=== PATIENT | female | born 2005 | race African-American/Black ===

== ENCOUNTER 2025-08-23 12:19 | Observation (INO) ==
[2025-08-23 12:55] LABS: Hematocrit (blood only) 40.9 % (37.0-47.0); Hemoglobin 13.6 g/dL (12.0-16.0); Immature Granulocytes # (auto) 0.08 K/uL (0.01-0.20); Immature Granulocytes % (auto) 0.4 %; Mean Corpuscular Hemoglobin 28.4 pg (25.0-34.0); Mean Corpuscular Volume 85.4 fL (80.0-100.0); Platelet Count 256 K/uL (130-400); RDW Standard Deviation 45.1 fL (36.4-46.3); Red Blood Count 4.79 M/uL (4.20-5.40); White Blood Count 18.16 K/ul (4.8-10.8)
--- NOTE | 2025-08-23 13:00 | Emergency Department Note ---
History of Present Illness General Chief complaint: Flu Like Symptoms Stated complaint: CAN'T BREATHE SORE THROAT Time Seen by Provider: 08/23/25 12:47 History of Present Illness Maximum Pain Intensity: 6 This is an otherwise healthy 20-year-old female who presents to the emergency department via private vehicle with complaints of "sore throat, cannot swallow". The patient notes that for the past several days now she has had a sore throat. She notes trouble swallowing. She states that she is drooling. She notes allergies to penicillins. No pertinent past medical history, surgeries or other allergies. Home Medications Medication Instructions Recorded Confirmed Type Control Pill 1 tab PO DIRECTED 08/23/25 08/23/25 History Allergies Allergy/AdvReac Type Severity Reaction Status Date / Time amoxicillin Allergy Intermediate Hives Verified 08/23/25 16:09 ALL "CILLINS" Allergy Intermediate Hives Uncoded 08/23/25 16:09 Past Med/Surg History Problem List (Updated 08/23/25 @ 17:39 by Ravi Wells PA-C) Dysphagia (Acute) Abnormal computed tomography of soft tissue of neck (Acute) Tonsillitis (Acute) Social History Smoking Status: Never smoker Preferred Language: Omani Feels Safe at Home: Yes Review of Systems A total of 10 systems reviewed and were otherwise negative Physical Exam Vital Signs Vital Signs - 24 hr 08/23/25 12:27 08/23/25 13:26 08/23/25 13:30 Temperature 37.7 C H Temperature Source Oral Pulse Rate 103 H 98 H Pulse Rate from SpO2 Sensor Respiratory Rate 18 Respiratory Effort / Characteristics Non-Labored Spontaneous Respiratory Depth Normal Blood Pressure 135/88 128/73 Blood Pressure Mean 103 88 Pulse Oximetry 95 Oxygen Delivery Method Room Air Sepsis Recent Fever Within 48 Hours No Sepsis New/Unexplained Change in Mental Status No Sepsis Action Taken by Nursing No Action Required 08/23/25 13:30 08/23/25 15:00 08/23/25 15:25 Temperature Temperature Source Pulse Rate 100 H 87 Pulse Rate from SpO2 Sensor 99 H 87 Respiratory Rate 19 19 Respiratory Effort / Characteristics Respiratory Depth Blood Pressure 119/64 Blood Pressure Mean 83 Pulse Oximetry 97 96 Oxygen Delivery Method Sepsis Recent Fever Within 48 Hours Sepsis New/Unexplained Change in Mental Status Sepsis Action Taken by Nursing 08/23/25 15:27 08/23/25 15:30 08/23/25 15:30 Temperature Temperature Source Pulse Rate 81 82 Pulse Rate from SpO2 Sensor 81 81 Respiratory Rate 18 16 Respiratory Effort / Characteristics Respiratory Depth Blood Pressure 125/68 Blood Pressure Mean 84 Pulse Oximetry 95 96 Oxygen Delivery Method Sepsis Recent Fever Within 48 Hours Sepsis New/Unexplained Change in Mental Status Sepsis Action Taken by Nursing 08/23/25 15:42 08/23/25 15:51 08/23/25 16:00 Temperature Temperature Source Pulse Rate 77 Pulse Rate from SpO2 Sensor 78 Respiratory Rate 17 Respiratory Effort / Characteristics Respiratory Depth Blood Pressure Blood Pressure Mean Pulse Oximetry 97 93 97 Oxygen Delivery Method Sepsis Recent Fever Within 48 Hours Sepsis New/Unexplained Change in Mental Status Sepsis Action Taken by Nursing 08/23/25 16:00 08/23/25 16:30 08/23/25 16:30 Temperature Temperature Source Pulse Rate 78 Pulse Rate from SpO2 Sensor 79 Respiratory Rate 20 Respiratory Effort / Characteristics Respiratory Depth Blood Pressure 120/68 144/66 H Blood Pressure Mean 80 80 Pulse Oximetry 97 Oxygen Delivery Method Sepsis Recent Fever Within 48 Hours Sepsis New/Unexplained Change in Mental Status Sepsis Action Taken by Nursing 08/23/25 17:00 08/23/25 17:00 Temperature Temperature Source Pulse Rate 71 Pulse Rate from SpO2 Sensor 71 Respiratory Rate 16 Respiratory Effort / Characteristics Respiratory Depth Blood Pressure 122/66 Blood Pressure Mean 76 Pulse Oximetry 97 Oxygen Delivery Method Sepsis Recent Fever Within 48 Hours Sepsis New/Unexplained Change in Mental Status Sepsis Action Taken by Nursing VITAL SIGNS - Vital signs and nursing notes were reviewed. Stable and borderline febrile. GENERAL -20-year-old female appearing her stated age who is in no acute distress but appears tired, mildly tearful and drooling. Communicates well with provider and answers questions appropriately. SKIN - Without rashes. No meningeal or petechial rash. HEAD - NC/AT. EYES - PERRL with EOMI bilaterally. Sclera anicteric. EARS - No deformities of external structures noted on gross examination bilaterally. External auditory canals without discharge or otorrhea. Tympanic membranes pearly [place] without retraction or bulging. No fluid or purulent material visualized behind the TM. Handle of malleus, umbo, cone of light, pars tensa/flaccid all easily visualized. NOSE - Midline and without cyanosis. No epistaxis or purulent drainage noted. Septum midline without deviation or septal hematoma noted. MOUTH/OROPHARYNX - Without perioral cyanosis. Buccal mucosa pink and moist and without leukoplakia. 2+ bilateral tonsil hypertrophy. There is soft palate fullness on the right greater than left. There is drooling. There is trismus. No stridor. There is a muffled voice. Good dentition noted. NECK - Bilateral anterior cervical lymphadenopathy noted. No nuchal rigidity. LUNGS -clear to auscultation CARDIAC - RRR NEUROLOGIC - Cranial nerves II through XII grossly intact. PSYCH -alert, oriented and pleasant on exam Course Administered Medications Discontinued Medications Dexamethasone Sodium Phosphate (DexamethasonePf 10 Mg/Ml Vial) 10 mg IV NOW ONE Stop: 08/23/25 13:43 Last Admin: 08/23/25 14:01 Dose: 10 mg Documented By: abdiaziz Clindamycin Phosphate (Cleocin/D5w) 600 mg in 50 mls @ 100 mls/hr IV NOW ONE Stop: 08/23/25 13:27 Last Admin: 08/23/25 14:08 Dose: Not Given Documented By: abdiaziz Sodium Chloride (Nss) 1,000 mls @ 999 mls/hr IV .Q1H1M ONE Stop: 08/23/25 13:58 Last Infusion: 08/23/25 15:10 Dose: Infused Documented By: abdiaziz Admin: 08/23/25 13:57 Dose: 999 mls/hr Documented By: abdiaziz Ceftriaxone Sodium (Rocephin) 2,000 mg in 50 mls @ 100 mls/hr IV NOW STA Stop: 08/23/25 14:11 Last Infusion: 08/23/25 15:10 Dose: Infused Documented By: abdiaziz Admin: 08/23/25 14:26 Dose: 100 mls/hr Documented By: abdiaziz Acetaminophen (Ofirmev) 1,000 mg in 100 mls @ 400 mls/hr IV NOW STA Stop: 08/23/25 13:56 Last Infusion: 08/23/25 14:27 Dose: Infused Documented By: abdiaziz Admin: 08/23/25 13:57 Dose: 400 mls/hr Documented By: abdiaziz Metronidazole (Flagyl) 500 mg in 100 mls @ 100 mls/hr IV NOW STA; Protocol Stop: 08/23/25 15:58 Last Infusion: 08/23/25 16:38 Dose: Infused Documented By: abdiaziz Admin: 08/23/25 15:37 Dose: 100 mls/hr Documented By: abdiaziz Ioversol (Optiray 320 100ml) 94 ml IV ONCE ONE Stop: 08/23/25 13:38 Last Admin: 08/23/25 13:37 Dose: 94 ml Documented By: LE Ketorolac Tromethamine (Ketorolac Tromethamine 15 Mg/Ml Vial) 10 mg IV NOW ONE Stop: 08/23/25 13:43 Last Admin: 08/23/25 14:01 Dose: 10 mg Documented By: abdiaziz Medical Decision Making Laboratory Data 08/23/25 12:40 08/23/25 12:40 Lab Results 08/23/25 08/23/25 08/23/25 Range/Units 12:40 12:40 15:25 WBC 18.16 H (4.8-10.8) K/ul RBC 4.79 (4.20-5.40) M/uL Hgb 13.6 (12.0-16.0) g/dL Hct 40.9 (37.0-47.0) % MCV 85.4 (80.0-100.0) fL MCH 28.4 (25.0-34.0) pg MCHC 33.3 (32.0-36.0) g/dL RDW Std Deviation 45.1 (36.4-46.3) fL RDW Coeff of Damián 14.6 H (11.5-14.5) % Plt Count 256 (130-400) K/uL MPV 10.9 (9.4-12.4) fL Immature Gran % (Auto) 0.4 % Neut % (Auto) 83.4 % Lymph % (Auto) 9.0 % Travis % (Auto) 5.5 % Eos % (Auto) 1.3 % Baso % (Auto) 0.4 % Neut # (Auto) 15.14 H (1.40-6.50) K/uL Lymph # (Auto) 1.64 (1.20-3.40) K/uL Travis # (Auto) 0.99 H (0.11-0.59) K/uL Eos # (Auto) 0.24 (0.00-0.50) K/uL Baso # (Auto) 0.07 (0.00-0.20) K/uL Immature Gran # (Auto) 0.08 (0.01-0.20) K/uL Sodium 135 L (136-145) mmol/L Potassium 3.7 (3.5-5.1) mmol/L Chloride 103 (98-107) mmol/L Carbon Dioxide 25 (21-32) mmol/L Anion Gap 7 (3-11) BUN 10 (6-23) mg/dl Creatinine 0.48 L (0.6-1.2) mg/dl Est Cr Clr Drug Dosing 194.1 ml/min eGFR 138.98 BUN/Creatinine Ratio 20.8 H (10-20) Glucose 102 H (70-99(Fasting)) mg/dl Calcium 9.9 (8.6-10.3) mg/dl Total Bilirubin 0.4 (0.2-1.0) mg/dl AST 27 (13-39) U/L ALT 26 (7-52) U/L Alkaline Phosphatase 93 (34-104) U/L Total Protein 8.5 H (6.0-8.3) gm/dl Albumin 4.5 (3.4-5.0) gm/dl Globulin 4.0 (2.5-4.0) gm/dl Albumin/Globulin Ratio 1.1 (0.9-2) HCG, Qual Negative (Negative) Urine Color Yellow Urine Appearance Clear (Clear) Urine pH 8.0 H (4.5-7.5) Ur Specific [place] > 1.045 H (1.000-1.030) Urine Protein Negative (Negative) Urine Glucose (UA) Negative (Negative) Urine Ketones 1+ H (Negative) Urine Blood Negative (Negative) Urine Nitrite Negative (Negative) Urine Bilirubin Negative (Negative) Urine Urobilinogen Negative (Negative) Ur Leukocyte Esterase Negative (Negative) Urine Comment SARS-CoV-2 (PCR) NEGATIVE (Negative) Monoscreen Negative Cancelled (Negative) Influenza Type A (PCR) Negative (Neg) Influenza Type B (PCR) Negative (Neg) RSV (RT-PCR) Negative (Neg) Group A Strep (PCR) NOT DETECTED (NotDetected) Imaging Data Radiologist's Impression: Soft Tissue Neck CT 08/23/25 12:58 CT soft tissue neck w con HISTORY: 20 years-old Female throat pain, drooling, muffled voice acute cerebral pain with dysphagia COMPARISON: None TECHNIQUE: Multiple axial CT images of the soft tissues of the neck were obtained with IV contrast. A dose lowering technique was used consistent with the principals of KIMBER. FINDINGS: Unremarkable appearance of the imaged vascular structures of the neck. The intracranial structures are within normal limits. Partially imaged overlying a large upper mediastinal lymph nodes. Lung apices are clear. Residual thymic tissue anterior mediastinum. Unremarkable thyroid, parotid and submandibular glands. Pathologically enlarged level 2 cervical chain lymph nodes measure up to 2.7 x 1.8 cm. Normal epiglottis and subglottic airway. Enlargement of the palatine, adenoid and lingual tonsils. The palatine tonsils demonstrate striated heterogeneous enhancement. Ill-defined 1.2 x 1.0 x 1.4 cm collection within the right peritonsillar tissues on image 162 series 3. Moderate edema within the right parapharyngeal tissues. There is moderate oral pharyngeal narrowing. No drainable fluid collection. Mild mucosal thickening of the paranasal sinuses. No acute fracture. IMPRESSION: 1. Acute tonsillitis with right peritonsillar phlegmon/developing abscess measuring 1.5 cm. No drainable fluid collection is present. 2. Moderate edema within the right parapharyngeal tissues. 3. Pathologically enlarged cervical chain lymph nodes likely reactive. Correlate clinically to exclude mononucleosis. ACT 112: Negative or not required by law. The above report was generated using voice recognition software. It may contain grammatical, syntax or spelling errors. Electronically signed by: Jose Manuel Hyde M.D. 08/23/2025 2:07 PM [facility] Narrative Patient was seen and evaluated as above in the A pod Sub wait area then B06. Review was performed of nursing notes and vital signs. After obtaining a thorough history and physical examination the above work up was performed. Patient presents to us today for evaluation of the above symptoms. She does have drooling, trismus, muffled voice. No stridor. No airway compromise clinically. Options of care were discussed with the patient. IV access was established per labs were drawn. There is leukocytosis 18.16. No anemia. Mild hyponatremia 135. No evidence of kidney or liver failure. hCG negative. Urinalysis without sign of infection. The viral quad panel was negative. Monoscreen negative. Group A strep negative. Throat culture pending. CT scan soft tissue neck obtained and as above. No drainable abscess at the present time, or developing abscess/phlegmon noted. There is also moderate edema within the right parapharyngeal tissues. [id number] spoke with Dr. Cuevas, ENT. We discussed the case. We discussed that if there was improvement with the IV hydration, IV antibiotics, IV steroid then we may consider close outpatient follow-up with him tomorrow in the office otherwise we did consider patient management if needed. The patient was medicated here with IV antibiotics. Initially I considered IV clindamycin, however after discussion with ED attending plan was to add IV ceftriaxone. This was complemented with IV Flagyl for additional coverage. She was medicated with IV acetaminophen, IV dexamethasone, IV fluids, IV Toradol. She was reevaluated with some improvement but still with difficulty swallowing. Airway is patent. Case discussed with the hospitalist service. Please refer to further documentation regarding her stay. GCS: 15 In the evaluation and treatment of this patient the following differential diagnoses were entertained: Strep pharyngitis, viral pharyngitis, allergic rhinitis with post nasal drip, airway obstruction, head/neck neoplasias, GERD, peritonisllar abscess, epiglottitis, kqgw-qnzn-bco-mouth disease, herpes simplex, mononucleosis, pneumonia, retropharyngeal abscess, scarlet fever, among others. Impression & Plan Tonsillitis, Abnormal computed tomography of soft tissue of neck, Dysphagia Discharge Plan Visit Data Chief Complaint: Flu Like Symptoms Stated Complaint: CAN'T BREATHE SORE THROAT ED Provider: [facility] ED Midlevel Provider: Ravi Wells Discharge Problem: Tonsillitis, Abnormal computed tomography of soft tissue of neck, Dysphagia Patient Disposition: Admitted As Inpatient Condition: Good Forms Stand Alone Forms: Float: [place] Prescriptions Prescriptions: No Action Control Pill 1 tab PO DIRECTED Rx Instructions: PT STATED "ON CONTROL, NOT RIGHT NOW". Referrals Referrals: [place] [Primary Care Provider] -
[2025-08-23 13:13] LABS: Alanine Aminotransferase 26.0 U/L (7-52); Albumin Globulin Ratio 1.1 (0.9-2); Albumin Level 4.5 gm/dl (3.4-5.0); Alkaline Phosphatase 93.0 U/L (34-104); Anion Gap 7.0 (3-11); Bilirubin,Total 0.4 mg/dl (0.2-1.0); Blood Urea Nitrogen 10.0 mg/dl (6-23); Calcium 9.9 mg/dl (8.6-10.3); Carbon Dioxide 25.0 mmol/L (21-32); Chloride 103.0 mmol/L (98-107); Creatinine Clr Calc Pharmacy 194.1 ml/min; Globulin 4.0 gm/dl (2.5-4.0); Glucose 102.0 mg/dl (70-99(Fasting)); Potassium 3.7 mmol/L (3.5-5.1); Pregnancy Test, Serum Negative (Negative); Sodium 135.0 mmol/L (136-145); Total Protein 8.5 gm/dl (6.0-8.3)
[2025-08-23 13:31] LABS: Influenza A virus by PCR Negative (Neg); Influenza B virus by PCR Negative (Neg); SARS CoV2 RNA(COVID-19) Ceph NEGATIVE (Negative)
[2025-08-23] MEDS: OPTIRAY 320 100ml IV ONE (13:37)
[2025-08-23] MEDS: SODIUM CHLORIDE 0.9% 1,000 ML IV ONE (13:57)
[2025-08-23] MEDS: ACETAMINOPHEN 1,000 MG/100 ML VIAL IV STA (13:57)
[2025-08-23] MEDS: dexAMETHasone**PF** 10 MG/ML VIAL IV ONE (14:01)
[2025-08-23] MEDS: KETOROLAC TROMETHAMINE 15 MG/ML VIAL IV ONE (14:01)
[2025-08-23] MEDS: CLINDAMYCIN/D5W 600 MG/50 ML BAG IV ONE (14:08)
--- NOTE | 2025-08-23 14:10 | CT Scan Report ---
CT soft tissue neck w con HISTORY: 20 years-old Female throat pain, drooling, muffled voice acute cerebral pain with dysphagia COMPARISON: None TECHNIQUE: Multiple axial CT images of the soft tissues of the neck were obtained with IV contrast. A dose lowering technique was used consistent with the principals of KIMBER. FINDINGS: Unremarkable appearance of the imaged vascular structures of the neck. The intracranial structures ar e within normal limits. Partially imaged overlying a large upper mediastinal lymph nodes. Lung apices are clear. Residual thymic tissue anterior mediastinum. Unremarkable thyroid, parotid and submandibu lar glands. Pathologically enlarged level 2 cervical chain lymph nodes measure up to 2.7 x 1.8 cm. No rmal epiglottis and subglottic airway. Enlargement of the palatine, adenoid and lingual tonsils. The palatine tonsils demonstrate striated heterogeneous enhancement. Ill-defined 1.2 x 1.0 x 1.4 cm colle ction within the right peritonsillar tissues on image 162 series 3. Moderate edema within the right p arapharyngeal tissues. There is moderate oral pharyngeal narrowing. No drainable fluid collection. Mi ld mucosal thickening of the paranasal sinuses. No acute fracture. IMPRESSION: 1. Acute tonsillitis with right peritonsillar phlegmon/developing abscess measuring 1.5 cm. No draina ble fluid collection is present. 2. Moderate edema within the right parapharyngeal tissues. 3. Pathologically enlarged cervical chain lymph nodes likely reactive. Correlate clinically to exclud e mononucleosis. ACT 112: Negative or not required by law. The above report was generated using voice recognition software. It may contain grammatical, syntax o r spelling errors. Electronically signed by: Jose Manuel Hyde M.D. 08/23/2025 2:07 PM
[2025-08-23] MEDS: cefTRIAXone SODIUM 2,000 MG/50 ML BAG IV STA (14:26)
--- NOTE | 2025-08-23 15:25 | History & Physical Report ---
Date of Service August 23, 2025 Assessment & Plan (1) Tonsillitis: Plan 20 female no significant past medical history Presents with sore throat drooling difficulty speaking muffled voice Trouble swallowing Headaches. Per ED provider she is having a difficult time speaking and was interacting by texting through her cell phone. Stat CT Soft tissue neck demonstrates acute tonsillitis, right peritonsillar phlegmon/abscess 1.5 cm not amenable to drainage. Also with moderate right parapharyngeal edema. She is provided IV dexamethasone 10 mg, Toradol, Rocephin Flagyl and IV fluids. ED provider discussed with ENT who recommends Bringing in for ongoing supportive care and monitoring overnight. Acute tonsillitis with peritonsillar phlegmon/abscess Supportive care PCU. Close monitoring of airway low threshold for MICU monitoring and intubation if signs of regression Viral pcr pending monospot testing (cervical LAD) N.p.o. Aspiration precautions IV fluids IV dexamethasone 10mg q8 X 3 doses IV Toradol IV clindamycin F/U ENT input (D/w Dr Braxton Cuevas) DVT prophylaxis SCDs Full code Disposition admission for observation History of Present Illness Chief Complaint: sore throat Primary Care Provider: [facility] 20 female no known significant past medical history Presents with sore throat drooling difficulty speaking muffled voice Trouble swallowing Headaches. Per ED provider she is having a difficult time speaking and was interacting by texting through her cell phone. Stat CT Soft tissue neck demonstrates acute tonsillitis, right peritonsillar phlegmon/abscess 1.5 cm not amenable to drainage. Also with moderate right parapharyngeal edema. She is provided IV dexamethasone 10 mg, Toradol, Rocephin Flagyl and IV fluids. ED provider discussed with ENT who Was okay with sending patient home if able to swallow and improved otherwise recommended bringing in for ongoing supportive care and monitoring overnight. ED provider tells me patient has improved since receiving interventions in ED and is now able to speak and no longer in distress. On my evaluation she Tells me she is starting to feel better able to swallow more of her secretions Dysphagia improving denies choking sensation odynophagia Shortness of breath fevers chills nausea lightheadedness or any other symptoms. I reached out to ENT myself to clarify Dosing for steroids antibiotics and for any additional recommendations via secure chat. He recommends dexamethasone 10 mg IV every 8 hours x 3 doses and clindamycin Allergies Allergy/AdvReac Type Severity Reaction Status Date / Time amoxicillin Allergy Hives Verified 08/23/25 13:48 Past Med/Surg History Problem List (Updated 08/23/25 @ 16:03 by Hector Crowe MD) Tonsillitis Social History Smoking Status: Never smoker Preferred Language: Latvian Feels Safe at Home: Yes Review of Systems Review of Systems: Negative except as in HPI Physical Exam Physical Exam: Awake alert NAD trismus Appears to be improving, limitation with evaluating posterior pharynx/uvula. No erythema, overt swelling or drainage Noted. Some scattered secretions. Tenderness to palpation right face. No induration. Mandible soft. No drooling. Limited ability to speak secondary to trismus/pain. Nods yes and no to questions S1-S2 positive Air entry bilaterally Soft nontender Palpable pulses Results & Data Results & Data Vital Signs (Past 12 Hours) Vital Signs Temp Pulse Resp BP Pulse Ox O2 Del Method 08/23/25 15:00 87 19 96 08/23/25 13:30 100 H 19 97 08/23/25 13:30 98 H 08/23/25 13:26 128/73 08/23/25 12:27 37.7 C H 103 H 18 135/88 95 Room Air PG Care Time/CCT Total # of Minutes Spent Total Time Spent with Patient: Total time spent is greater than 50% in coordination of care (as documented) at patient's floor/unit and/or counseling patient: Coding Level of Care Code 32926 INT INP/OBS CARE 2/55MIN Diagnoses Tonsillitis J03.90
[2025-08-23] MEDS: metroNIDAZOLE 500 MG/100 ML BAG IV STA (15:37)
[2025-08-23 16:08] LABS: Appearance Urine Clear (Clear); Glucose Urine UA Negative (Negative)
[2025-08-23 17:53] LABS: EBV IgM Antibody Negative; EBV IgM Quant 15.4 U/mL (< 36.0); EBV Nuclear Antigen IgG Ab Positive; EBV Nuclear Antigen IgG Quant > 600.0 U/mL (< 18.0)
[2025-08-23 17:54] LABS: EBV IgG Antibody Positive; EBV IgG Quant 140.0 U/mL (< 18.0)
[2025-08-23] MEDS ORDERED: ACETAMINOPHEN 325 MG TAB PO PRN (18:32)
[2025-08-23] MEDS ORDERED: ONDANSETRON INJ 2 MG/ML 2 ML VIAL IV PRN (18:32)
[2025-08-23] MEDS: SODIUM CHLORIDE 0.9% 1,000 ML IV SCH (18:58)
[2025-08-23] MEDS: CLINDAMYCIN/D5W 900 MG/50 ML BAG IV SCH (20:09)
[2025-08-23] MEDS: KETOROLAC 30 MG/ML VIAL IV SCH (20:09)
[2025-08-23] MEDS ORDERED: DEXAMETHASONE SOD INJ 4 MG/ML VIAL IV SCH (22:00)
[2025-08-23] MEDS: dexAMETHasone 10 MG in SYRINGE 0 ML IV SCH (22:28)
[2025-08-24 03:07] VITALS: BP 115/52; RESP 14; TEMP 98.4; O2SAT 95
[2025-08-24 04:50] LABS: Hematocrit (blood only) 37.8 % (37.0-47.0); Hemoglobin 12.7 g/dL (12.0-16.0); Mean Corpuscular Hemoglobin 28.5 pg (25.0-34.0); Mean Corpuscular Volume 84.8 fL (80.0-100.0); Platelet Count 233 K/uL (130-400); RDW Standard Deviation 45.1 fL (36.4-46.3); Red Blood Count 4.46 M/uL (4.20-5.40); White Blood Count 16.09 K/ul (4.8-10.8)
[2025-08-24 05:08] LABS: Alanine Aminotransferase 18.0 U/L (7-52); Albumin Globulin Ratio 1.1 (0.9-2); Albumin Level 3.7 gm/dl (3.4-5.0); Alkaline Phosphatase 74.0 U/L (34-104); Anion Gap 9.0 (3-11); Bilirubin,Total 0.6 mg/dl (0.2-1.0); Blood Urea Nitrogen 9.0 mg/dl (6-23); Calcium 9.4 mg/dl (8.6-10.3); Carbon Dioxide 20.0 mmol/L (21-32); Chloride 107.0 mmol/L (98-107); Creatinine Clr Calc Pharmacy 274.1 ml/min; Globulin 3.4 gm/dl (2.5-4.0); Glucose 126.0 mg/dl (70-99(Fasting)); Potassium 3.6 mmol/L (3.5-5.1); Sodium 136.0 mmol/L (136-145); Total Protein 7.1 gm/dl (6.0-8.3)
[2025-08-24] MEDS: INFLUENZA VACC TS2025-26(6m+)/PF (IIV3) 0.5mL Syr IM ONE (08:35)
--- NOTE | 2025-08-24 08:41 | Hospitalist Progress Note ---
Date of Service August 24, 2025 Assessment & Plan (1) Dysphagia: (2) Abnormal computed tomography of soft tissue of neck: (3) Tonsillitis: Plan 20 female no significant past medical history Presents with sore throat drooling difficulty speaking muffled voice Trouble swallowing Headaches. Per ED provider she is having a difficult time speaking and was interacting by texting through her cell phone. Stat CT Soft tissue neck demonstrates acute tonsillitis, right peritonsillar phlegmon/abscess 1.5 cm not amenable to drainage. Also with moderate right parapharyngeal edema. She is provided IV dexamethasone 10 mg, Toradol, Rocephin Flagyl and IV fluids. ED provider discussed with ENT who recommends Bringing in for ongoing supportive care and monitoring overnight. Acute tonsillitis with peritonsillar phlegmon/abscess Supportive care PCU. Close monitoring of airway low threshold for MICU monitoring and intubation if signs of regression Viral pcr pending monospot testing (cervical LAD) N.p.o. Aspiration precautions IV fluids IV dexamethasone 10mg q8 X 3 doses IV Toradol IV clindamycin F/U ENT input (D/w Dr Braxton Cuevas) Admission and Anticipated Discharge Date Admission Date: August 23, 2025 Subjective No overnight events. Pt seen and examined at bedside today. She reports feeling better. She is able to breath and swallow today without discomfort. Pt notes resolution of drooling. Denies fever, chills, CP, SOB, GI or complaints. Review of Systems Review of Systems: per HPI Physical Exam Physical Exam: GA: well groomed, well nourished in no apparent distress. AAOx3 HEENT: head normocephalic, atraumatic. EOMI. patent nares. limitation with evaluating posterior pharynx/uvula but no apparent erythema, edema, or drooling present. RESP: vesicular breath sounds b/l. No wheezes, rhonchi, or rales CARDIOVASCULAR: S1 and S2 heard. No murmurs, rubs, or gallops. Radial pulses 2+ b/l RRR GI: no tenderness or masses felt to palpation MSK: no gross abnormalities or focal deficits SKIN: warm, dry, no edema PSYCH: appropriate mood and affect NEURO: no focal deficits. speech fluent Results & Data Results & Data Vital Signs (Past 12 Hours) Vital Signs Temp Pulse Pulse Resp BP Pulse Ox O2 Del Method 12/08/25 02:48 36.9 C 62 14 115/52 L 95 Room Air 08/23/25 23:28 37 C 67 20 118/57 L 97 Room Air 08/23/25 23:00 70 Resident Activity Tracking Resident Involvement: Resident Care Provided Care Provided: Adult Hospital Medicine
--- NOTE | 2025-08-24 10:35 | Discharge Summary ---
Date of Service August 24, 2025 Admission HPI Per Admitting Provider 20 female no known significant past medical history Presents with sore throat drooling difficulty speaking muffled voice Trouble swallowing Headaches. Per ED provider she is having a difficult time speaking and was interacting by texting through her cell phone. Stat CT Soft tissue neck demonstrates acute tonsillitis, right peritonsillar phlegmon/abscess 1.5 cm not amenable to drainage. Also with moderate right parapharyngeal edema. She is provided IV dexamethasone 10 mg, Toradol, Rocephin Flagyl and IV fluids. ED provider discussed with ENT who Was okay with sending patient home if able to swallow and improved otherwise recommended bringing in for ongoing supportive care and monitoring overnight. ED provider tells me patient has improved since receiving interventions in ED and is now able to speak and no longer in distress. On my evaluation she Tells me she is starting to feel better able to swallow more of her secretions Dysphagia improving denies choking sensation odynophagia Shortness of breath fevers chills nausea lightheadedness or any other symptoms. I reached out to ENT myself to clarify Dosing for steroids antibiotics and for any additional recommendations via secure chat. He recommends dexamethasone 10 mg IV every 8 hours x 3 doses and clindamycin Admission Exam Per Admitting Provider Awake alert NAD trismus Appears to be improving, limitation with evaluating posterior pharynx/uvula. No erythema, overt swelling or drainage Noted. Some scattered secretions. Tenderness to palpation right face. No induration. Mandible soft. No drooling. Limited ability to speak secondary to trismus/pain. Nods yes and no to questions S1-S2 positive Air entry bilaterally Soft nontender Palpable pulses Principal Diagnosis Tonsillits and peritonsillar abscess Discharge Exam GA: well groomed, well nourished in no apparent distress. AAOx3 HEENT: head normocephalic, atraumatic. EOMI. Nares patent. Limited visualization of posterior pharynx/uvula. No erythema, edema, or drainage present. RESP: vesicular breath sounds b/l. No wheezes, rhonchi, or rales CARDIOVASCULAR: S1 and S2 heard. No murmurs, rubs, or gallops. Radial pulses 2+ b/l RRR GI: no tenderness or masses felt to palpation MSK: no gross abnormalities or focal deficits SKIN: warm, dry, no edema PSYCH: appropriate mood and affect NEURO: no focal deficits. speech fluent Discharge Data Allergies Allergy/AdvReac Type Severity Reaction Status Date / Time amoxicillin Allergy Intermediate Hives Verified 08/23/25 16:09 ALL "CILLINS" Allergy Intermediate Hives Uncoded 08/23/25 16:09 Consultations 08/23/25 15:27 ED Decision to Admit Stat Ordered Studies 08/23/25 12:58 CT soft tissue neck w con Stat Hospital Course (1) Abnormal computed tomography of soft tissue of neck: (2) Tonsillitis: (3) Dysphagia: Plan 20 female no significant past medical history Presents with sore throat drooling difficulty speaking muffled voice Trouble swallowing Headaches. Per ED provider she is having a difficult time speaking and was interacting by texting through her cell phone. Stat CT Soft tissue neck demonstrates acute tonsillitis, right peritonsillar phlegmon/abscess 1.5 cm not amenable to drainage. Also with moderate right parapharyngeal edema. She is provided IV dexamethasone 10 mg, Toradol, Rocephin Flagyl and IV fluids. ED provider discussed with ENT who recommends Bringing in for ongoing supportive care and monitoring overnight. #Acute tonsillitis with peritonsillar phlegmon/abscess -Supportive care -Follow up with ENT (Dr. Braxton Cuevas) and PCP as outpatient -s/p IV fluids, IV dexamethasone 10mg q8 X 3 doses, IV clindamycin -PO clindamycin 450mg tid for a total of 14 days, take with food -PO ibuprofen 400-600mg tid prn for pain/discomfort -stable for discharge Total Time Total Time Spent Total Time Spent (In Minutes): please see attending attestation Discharge Plan Discharge Items Patient Disposition: Home - Self-Care Reason For Visit: TONSILLITIS Discharge Diagnosis: tonsillitis Condition on Discharge: Good Activity: Resume your previous activity Non-emergency contact: Primary Care Provider Call non-emergency contact if: you have any medication questions, your symptoms worsen and you have a fever Follow-up/Referrals: [facility] [Primary Care Provider] - Braxton Cuevas MD [Physician] - 08/26/25 9:30 am (08/26/25 at 9:30) Diet: Regular Addtl Attending Provider Instructions: You were admitted to the hospital for trouble speaking and swallowing, drooling, and found to have tonsillitis and a 1.5cm abscess/phlegmon on imaging which could not be drained. You were treated with IV antibiotics, steroids, and pain medication. You were deemed safe for discharge when your symptoms improved. Medications Your medication list has been reviewed and reconciled. An updated list is included with your discharge paperwork; please review this list closely and make note of any changes. We sent a prescription for clindamycin to your pharmacy. Take clindamycin 450mg [three tablets] [three times daily] [for a total of 14 days]. You received some doses in the hospital so the appropriate course will be sent to your pharmacy. Take your first dose this evening. It is important to take this medication with food. Upset stomach and diarrhea is a common side effect of antibiotics. You may take over the counter ibuprofen or Tylenol for pain/discomfort. Ibuprofe n 400-600mg or Tylenol 650-1000mg up to two to three times daily. Please follow package instructions on dosing. Take your medications as instructed; do not skip a dose. Make sure all of your doctors know every medicine you are taking (including xpsy-izn-piiiazm medicines, vitamins, and supplements). Call your PCP before taking any new medicines because some of these may interact with your current medications, or may make your symptoms worse. Follow-up appointments: Make a follow-up appointment with your PCP within the next week. It is very important that you follow up with them shortly after discharge from the hospital. We have requested a follow-up appointment Dr. Cuevas, ENT. Please call their office if you do not hear from them. Keep all your follow-up appointments as already scheduled. If you cannot make an appointment, notify your provider. Please bring a copy of this discharge summary with you to your next office appointment so that your provider can review it at that time and stay updated on your hospitalization and potential changes in your care. Contact your PCP if your symptoms return or worsen. Call 911 or go to the ER if you experience any of the following: Sudden, severe abdominal pain or nausea/vomiting Severe chest pain, or chest pain that radiates (moves) to your jaw or arm Sudden, severe shortness of breath or difficulty breathing Thank you for allowing us to participate in your care. Pending Studies at Discharge: No Stand-Alone Forms: My [employer], Work/School Release, Smoking Cessation Medications and DC Order Prescriptions: New clindamycin HCl 150 mg Capsule 450 mg PO Q8H 13 Days Qty: 120 0RF Continued Control Pill 1 tab PO DIRECTED Rx Instructions: PT STATED "ON CONTROL, NOT RIGHT NOW". Discharge Orders: Discharge Order (Routine); Ordered 08/24/25 Ordered By: Braxton Glass Admission Data Admit Date/Time: 08/23/25 15:46 Attending Provider: Adelaida Solis Admit Provider: Hector Crowe Primary Care Provider: [facility] Other Providers: Hector Crowe Other Interventions: Discharge Summary Assessment (RN) Last Done: 08/24/25 11:15 Supervising Physician Co-Signing Physician Notes I personally examined the patient and verified sutton points of history, discussed case, and agree with decision making and plan documented by Dr. Glass. Patient with no pertinent medical history presenting with difficulty swallowing and throat pain and diagnosed with 1.5 cm right peritonsillar phlegmon/abscess and edema. No drainable fluid appreciated on CT imaging. Patient reports she feels much better, she states she is able to speak and swallow food without discomfort. Patient initially placed on Rocephin, then transitioned to IV clindamycin, discharged on PO clindamycin. Patient received three doses IV dexamethasone. She was discharged with close followup with ENT scheduled 08/26/25. Patient aware of the importance of completing antibiotics as directed. We reviewed increasing probiotics after antibiotic therapy. She will schedule hospital followup at [facility]. Total attending time 28 Resident Activity Tracking Resident Involvement: Resident Care Provided Care Provided: Adult Hospital Medicine
[2025-08-24 11:21] VITALS: PULSE 62
[2025-08-24] MEDS: CLINDAMYCIN HCL 150 MG CAP PO SCH (11:45)
== END 2025-08-24 13:38 | disposition home or self-care (01) ==
LOC: EDINP 12:19 → ED 12:19 → SUATTDRO 15:46 → 1E 18:33